=== PATIENT | female | born 1995 | race Caucasian/White ===

== ENCOUNTER 2017-06-09 12:28 | Emergency (ER) | payer SELFPAY ==
[2017-06-09 14:08] LABS: BASOPHIL % 0.3 % (0-2); PLATELET COUNT 299 x10^3mcL (130-400); RED CELL DISTRIBUTION WIDTH 12.6 % (11.5-14.5)
[2017-06-09 14:26] LABS: microscopic required? YES; urine erythrocyte 2+ (NEGATIVE)
[2017-06-09 16:21] VITALS: BP 120/65
== END 2017-06-09 16:21 | disposition home or self-care (01) ==
LOC: ED 12:28
PROVIDERS: Emergency Medicine
DX: O20.0 Threatened abortion (principal); O23.41 Unspecified infection of urinary tract in pregnancy, first trimester; Z3A.01 Less than 8 weeks gestation of pregnancy
CPT/HCPCS: 36415